=== PATIENT | male | born 1995 | race Caucasian/White ===

== ENCOUNTER 2017-11-02 10:40 | Emergency (ER) | payer MEDICAID, SELFPAY ==
[2017-11-02 10:42] VITALS: BP 158/70; PULSE 108; RESP 16; TEMP 36.2; O2SAT 99; BMI 26.9
--- NOTE | 2017-11-02 11:12 | ED.DCSUM_ITS ---
- ER Visit Summary Date of Service: 11/02/17 Chief Complaint: Penile pain History of Present Illness: The patient is a 22 M with no primary care physician. He reports that he has pain in his penis that began October 29. Reports that the night before he had intercourse with someone in the pain started then. It is worsened since that time. He denies any penile discharge. No testicular pain. No back pain. He has had dysuria. He was told that urgent care that he has hematuria. He denies any abdominal pain, nausea, vomiting, or diarrhea. Patient is sexually active. He reports he has had 2 partners in the past month. He does not use condoms. He states that he had chlamydia in July. Physical Examination: Vitals: Stable. Afebrile. General: Well-nourished and well-developed. Head: Normocephalic atraumatic. Neck: Supple, no lymphadenopathy. No JVD. Nontender. Cardiovascular: Regular rate and rhythm. No murmurs. Respiratory: No respiratory distress. Clear to auscultation bilaterally. Abdominal: Soft, nontender, nondistended, normal bowel sounds. No guarding, rebound, or peritoneal signs. : Normal circumcised male. No testicular tenderness. No discharge. Back: Nontender. Extremities: Nontender, no edema. Skin: Normal color, no rash. Neurologic: Alert and oriented ?3. Cranial nerves II through XII are intact. Normal strength and sensation. Psych: Normal affect. Emergency Department Course and Treatment: Patient reports that he got a shot for gonorrhea in the urgent care 2 days ago. He is given a prescription for Zithromax and has not taken it yet. I did discuss the possibility of Trichomonas as well. He does not have insurance and would like to have this as an outpatient. Treatment Plan: Patient is instructed to take the 1 g of Zithromax that was previously prescribed to him. Is also given prescription for 2 g of Flagyl. He will also be placed on Pyridium. Instructed to follow Dr. Marquez in 1 week if not improving. Disposition: To home in improved and stable condition. Impression: 1. Urethritis. This note was generated with [employer] software. It may contain incorrect words, spelling, and punctuation that were not noted in review of the chart prior to signing ED Disposition - Plan for ED Patient: Disposition: Home or Assisted Living Chief Complaint: Flank Pain Instructions: ED STD Male Treated Prescriptions: Metronidazole [Flagyl] 2,000 mg PO X1 #4 tablet Phenazopyridine HCl [Pyridium] 200 mg PO TID #10 tablet Referrals: Manuelito Marquez MD [STAFF PHYSICIAN] - 1 Week if not improving
== END 2017-11-02 11:29 | disposition home or self-care (01) ==
LOC: ED 11:24
PROVIDERS: Emergency Provider Emergency Medicine
DX: N34.2 Other urethritis (principal); Z86.19 Personal history of other infectious and parasitic diseases
CPT/HCPCS: 99281

== ENCOUNTER 2017-11-16 09:55 | Emergency (ER) | payer MEDICAID, SELFPAY ==
[2017-11-16 09:56] VITALS: BP 123/75; PULSE 84; RESP 14; TEMP 36.9; O2SAT 97; BMI 26.9
--- NOTE | 2017-11-16 10:08 | CT_ITS ---
STUDY: CT ABDOMEN AND PELVIS WITHOUT CONTRAST REASON FOR EXAM: Male, 22 years old. Left flank pain. RADIATION DOSAGE (If Supplied By Facility): CTDIvol = ( 11.42 ) mGy, DLP = ( 600.36 ) mGycm TECHNIQUE: Transaxial images were obtained from the dome of the diaphragm to the symphysis pubis without oral contrast, and without intravenous contrast. Sagittal and coronal images were reconstructed. Individualized dose optimization techniques were used for this CT. COMPARISON: None. FINDINGS: The visualized lung bases are unremarkable. The visualized portions of the heart are within normal limits. Normal liver. Normal gallbladder and extrahepatic biliary system. Normal spleen. Normal pancreas. Normal bilateral adrenal glands. Normal right kidney. Normal left kidney. I suspect a 2.8 mm calculus at the left ureterovesical junction. There is a small hiatal hernia. Normal small intestine. Normal colon. The appendix is visualized and appears normal. Normal abdominal aorta. Normal inferior vena cava. Normal retroperitoneum. Normal urinary bladder. Normal abdominal wall. Normal osseous structures. CT/Abdomen/Pelvis without Cont IMPRESSION: I suspect a 2.8 mm calculus at the left ureterovesical junction. Electronically Signed: Anoop Crump MD at 10:48 EDT Tel [phone], Service support ,
--- NOTE | 2017-11-16 10:13 | ED.DCSUM_ITS ---
- ER Visit Summary Date of Service: 11/16/17 Chief Complaint: Flank pain, dysuria History of Present Illness: The patient is a 22 M presents to the emergency department with multiple complaints. The patient states that about 3 weeks ago , he was diagnosed with what he thinks was balanitis and chlamydia. The patient was treated. He states that his symptoms improved. He has not had sexual intercourse since that time. Over the past few days, he has begun to have some pain intermittently in his left flank. He is also had some itching of his penis and some mild dysuria. He denies any prior history of kidney stone. He denies any fevers or chills. He denies any penile discharge. The pain does not radiate into his testicles. He states he has had some mild diarrhea for the past few days when he eats, but denies any history of irritable bowel disease. Physical Examination: Vital signs reviewed General: Well-nourished, well-developed Head: Normocephalic, atraumatic Eyes: Pupils equal and reactive, extraocular muscles intact Neck, supple, no lymphadenopathy Heart: Regular rate and rhythm Respiratory: No distress, clear bilaterally Abdomen: Soft, nontender, nondistended, no peritoneal signs Back: Mild left CVA tenderness exam: Normal external genitalia, small follicular lesion left lateral aspect of the penis, no vesicles, no chancre, no lymphadenopathy, no discharge Extremities: Nontender, no edema, no cords Skin: Normal color no rash Neuro: Alert and oriented, no focal or lateralizing deficits Test Results: [] Emergency Department Course and Treatment: The patient's lesion does look like a small folliculitis. There is no chancre. There are nonvesicular. I did obtain a viral smear which is obvious and currently pending. With this flank pain, UA was obtained. There was no evidence of infection. He has no evidence of urethritis. CT does demonstrate a 2.8 mm stone at the left UVJ without significant hydro-. The patient's pain is under control. I am going to write him a topical cream for his follicular lesion and itching. He will be placed on Naprosyn. He states he already has follow-up in place with urology and will keep this. He will be discharged home. Treatment Plan: [] Disposition: Discharge Impression: 1. 2.8 mm left UVJ stone 2. Penile lesion This note was generated with [employer] dictation software. It may contain incorrect words, spelling, and punctuation that were not noted in review of the chart prior to signing ED Disposition - Plan for ED Patient: Chief Complaint: Flank Pain Instructions: ED Stone Renal W Colic Prescriptions: Ondansetron [Zofran Odt] 4 mg PO Q8H PRN PRN #10 tab PRN Reason: Nausea Naproxen [Naprosyn] 500 mg PO BID PRN #20 tab Clotrimazole/Betamethasone Dip [Clotrimazole-Betamethasone Crm] 1 applic TP BID #45 cream..g. Referrals: Manuelito Marquez MD [STAFF PHYSICIAN] -
[2017-11-16 11:03] LABS: Bacteria 0 SEEN /hpf (None Seen); Mucous, Urine 0 SEEN /hpf (<or=2+); Squamous Epithelial Cells - UA 0 SEEN /hpf (0-5)
[2017-11-16 11:05] LABS: Color, Urine Yellow (Yellow); Glucose, Dipstick Normal (Normal); Ketone-Dipstick Negative (Negative); Leukocyte Esterase-Dipstick 25 /ul (Negative); Nitrite-Dipstick Negative (Negative); Occult Blood-Urine Negative /ul (Negative); Protein-Dipstick 15 mg/dl (Negative); Urine Bilirubin Dipstick Negative (Negative); Urine Clarity Clear (Clear); Urine Urobilinogen Normal (Normal)
[2017-11-16 11:14] LABS: Red Blood Cells-Urine 0-5 SEEN /hpf (0-5); White Blood Cells 0-5 SEEN /hpf (0-5)
[2017-11-16 13:16] LABS: Chlamydia Trachomatis by PCR Negative (Negative); Neisserai gonorrhoeae by PCR Negative (Negative); Probe Check PASS; Sample Adequacy Control PASS; Specimen Processing Control PASS
== END 2017-11-16 11:31 | disposition home or self-care (01) ==
PROVIDERS: Emergency Provider Emergency Medicine
DX: N20.1 Calculus of ureter (principal); N48.89 Other specified disorders of penis
CPT/HCPCS: 74176; 81001; 87255; 87491; 87591; 99282

== ENCOUNTER 2023-11-21 14:21 | Emergency (ER) | payer MEDICAID, SELFPAY ==
[2023-11-21 14:22] VITALS: BP 142/105; PULSE 85; RESP 14; TEMP 36.2; O2SAT 96
--- NOTE | 2023-11-21 16:57 | ED.RN ---
CALLED TO GO TO A ROOM AT 1600, 1620, 1655. PT NOT IN WAITING AREA, RESTROOMS OR SURROUNDING AREAS
== END 2023-11-21 17:00 | disposition left against medical advice (07) ==
LOC: ED 17:02
DX: Z53.21 Procedure and treatment not carried out due to patient leaving prior to being seen by health care provider (principal)